=== PATIENT | male | born 1985 | race Caucasian/White ===

== ENCOUNTER 2020-01-08 10:42 | Outpatient (CLI) | payer OTHER ==
--- NOTE | 2020-01-08 10:27 | SLEEP CARE CONSULTATION ---
Information from patient questionnaire entered by Linda Emanuel. I have reviewed and concur with the information entered by Linda Emanuel. This document represents the service I personally performed and the decisions made by me, Jaron Haile MD, [facility]. History of Present Illness Service Date and Time: 01/08/2020 1040 Reason for Visit: New patient, Previously diagnosed sleep apnea, sleep apnea on CPAP therapy Chief Complaint: reports: Unrefreshed sleep, Snoring, Excessive daytime sleepiness, Observed pauses in breathing, Fatigue, Frequent awakenings at night Duration of Symptoms: 4-5 years Usual bedtime: 9 pm - 1 am Time it takes to fall asleep: 30-60 mins Snores at night: Yes Observed to quit breathing while asleep: Yes Sleeps alone due to snoring: No (N/A) Number of times waking at night: 2-4 Reasons for waking at night: reports: Choking (sometimes), Snoring (sometimes), Other (toss and turn) Toss, Turn, or Twitch while sleeping: Yes Recalls having dreams: Yes (sometimes) Usually gets out of bed at: 5:45 am - natural wake up 6:45-8 am Feels refreshed in the morning: No (wake up groggy for 30-45 mins) Morning headache: No Sleepy or fatigued during the day: Yes (constantly tired) Ever fallen asleep while driving: No Takes day naps: Yes Dreams during day naps: No Prior sleep studies: Yes Year and Where: 2015 - [place], [place] Additional HPI information: I had the pleasure of seeing Mr. Cristina today regarding obstructive sleep apnea-hypopnea. As you know, he is a 34 year old gentleman who was diagnosed with the sleep-disordered breathing [place] in 2016. The report is not available. He cannot recall the severity. He was prescribed a CPAP device set at 7 cmH2O. He uses occasionally because he could not get supplies until just recently. The compliance data show usage in 8 out of the past 30 nights, averaging 5.4 hours a night. The residual AHI is 4.1 and average time in large leak per day of 1.4 hours. He wears a full face mask. He gets his supplies from [facility]. He finds the treatment partially helpful. He complains of mask falling off. He also has nasal congestion but he does not put water in the humidifier. He reports that memory card no longer works after he gave it to us to download. - Parasomnia Symptoms Ever been unable to move upon waking from sleep: No Ever felt weak in the knees when startled or emotional: No Bothered by creepy, crawly, restless sensations in legs: Yes (rarely) Problems with memory or concentration: Yes CPAP Compliance Data - Data Reviewed with Patient Average duration of nightly device use: 5.4 Compliance rate %: 20 (30 days) Current pressure setting (cmH2O): 7 Humidity settin Heated hose settin Average residual AHI: 4.1 Average large leak: 1 hr 26 min Subjective Initial [place] Sleepiness Scale score: 9 Social History The patient's occupation is a Active . Patient is Single and lives in [place]. Have you smoked in the past 12 months: No Alcohol use: Yes Alcohol amount and frequency: 3 beers 1-2 times a week Caffeine use: Yes Caffeine amount and frequency: multiple drinks every day Family History Family history of sleep disordered breathing: No Allergies and Home Medications Drug allergies reviewed: Yes Home medication list reviewed: Yes Review of Systems Ear/Nose/Throat: reports: nasal congestion (with CPAP), dry mouth/throat (with CPAP) Physical Exam Height: 5 ft 9 in Weight: 211 lb Body Mass Index: 31.1 BMI Classification: Obese Impression and Plan IMPRESSION: 1. Obstructive Sleep Apnea-Hypopnea Syndrome, as previously diagnosed. The severity is unknown. The patient has just gotten back on the treatment with new supplies from [facility]. The current pressure setting appears effective and comfortable. The patient experiences improvement on the treatment. For his nasal congestion, I recommend using the heated humidifier. With his nose unclogged, he may consider using a nasal mask or cushion. No adjustment needed today. Plan: 1. Continue with the CPAP therapy at the same setting. 2. Start using the heated humidifier. 3. Bring the machine in to [facility] to see if it needs a new SD card. 4. Try other masks, including nasal masks and cushions. 5. Try to lose weight. 6. Return for follow up in a year or earlier if there is any problem. He will be eligible for a new machine then. Visit Type: Telehealth Video Video Type: Handseeing Information Patient Location: Home Location of Provider: Home Patient agrees and consents to this telehealth visit type: Yes Patient agrees to have their insurance billed: Yes Time Spent with Patient (minutes): 15 Provider Statement: I spent 100% of the Telehealth Video Call with the patient with greater than 50% spent counseling the patient and coordination of care.
== END 2020-01-08 10:43 | disposition home or self-care (01) ==
LOC: SC 10:42
PROVIDERS: ATTEND Internal Medicine Pulmonary Disease
DX: G47.33 Obstructive sleep apnea (adult) (pediatric) (principal); E66.9 Obesity, unspecified; Z68.31 Body mass index [BMI] 31.0-31.9, adult